=== PATIENT | female | born 1990 | race Caucasian/White ===

== ENCOUNTER 2017-03-26 14:04 | Emergency (ER) | payer OTHER ==
[~2017-03-26] VITALS: Ht 167.6 cm; Wt 63.7 kg
[2017-03-26 17:51] VITALS: BP 115/62
== END 2017-03-26 18:03 | disposition home or self-care (01) ==
LOC: ED 14:04
DX: L02.426 Furuncle of left lower limb (principal); L02.425 Furuncle of right lower limb; L02.424 Furuncle of left upper limb; L02.423 Furuncle of right upper limb; F17.210 Nicotine dependence, cigarettes, uncomplicated; Z71.6 Tobacco abuse counseling; Z59.0 Homelessness
CPT/HCPCS: 99406

== ENCOUNTER 2017-05-09 00:22 | Emergency (ER) | payer MEDICAID ==
[2017-05-09 01:59] VITALS: BP 124/64
== END 2017-05-09 01:59 | disposition home or self-care (01) ==
LOC: ED 00:22
DX: H10.9 Unspecified conjunctivitis (principal); F17.210 Nicotine dependence, cigarettes, uncomplicated